=== PATIENT | female | born 2000 | race Two or more races ===

== ENCOUNTER 2024-06-23 08:12 | Emergency (ER) | payer MEDICAID, SELFPAY ==
--- NOTE | 2024-06-23 08:26 | XR_ITS ---
Examination: Complete OB ultrasound, less than 14 weeks, transabdominal Date and time of exam: June 23, 2024 0852 hours INDICATIONS: Onset vaginal bleeding and pelvic pain today, 12 week by history Technique: Obstetrical ultrasound images less than 14 weeks performed via transabdominal imaging Findings: Uterus 8.4 x 5.3 x 6.3 cm Intrauterine gestational sac 2.4 cm corresponds to 7 weeks 3 days gestational age No pole No cardiac activity Right ovary 3.4 x 2.4 x 3.0 cm arterial flow Left ovary 3.3 x 1.8 x 2.0 cm arterial flow IMPRESSION: Empty intrauterine gestational sac corresponding to 7 weeks 3 days gestational age No pole, no cardiac activity Recommend short-term follow-up transvaginal pelvic sonography to exclude embryonic demise
--- NOTE | 2024-06-23 08:27 | PD.EDVAGBL ---
ED OB Contraction Preg RMI/HPI General Chief complaint: Vaginal Bleeding Stated complaint: VAGINAL BLEEDING X 10 MIN; 12 WKS GRAV 1 Time Seen by Provider: 06/23/24 08:22 Source: patient Arrival date/time: 06/23/24 08:12 24-year-old female presents to the emergency room with a chief complaint of vaginal bleeding and bilateral pelvic pain x 10 minutes. Patient is currently 12 weeks she is a G1, P0. Mode of arrival: ambulatory Limitations: no limitations Related Data Previous Rx's ?Medication ?Instructions ?Recorded lidocaine 5 % topical ointment 1 applic topical QDAY PRN pain #30 02/24/23 grams cephalexin 500 mg capsule 500 mg PO BID 7 days #14 caps 06/23/24 Allergies Allergy/AdvReac Type Severity Reaction Status Date / Time Penicillins Allergy Intermediate FEVER, RASH Verified 06/23/24 08:14 Review of Systems Review of Systems Systems Reviewed: All systems reviewed, normal except as documented Constitutional Constitutional: Reports system reviewed and no additional complaints, except as documented, Denies fatigue, Denies fever(s), Denies headache(s) and Denies weakness Eyes Eyes: Reports system reviewed and no additional complaints, except as documented, Denies blurry vision and Denies change in vision ENT Ears, Nose, Mouth, and Throat: Reports system reviewed and no additional complaints, except as documented, Denies otalgia, Denies headache(s), Denies nasal congestion, Denies throat swelling and Denies vertigo Cardiovascular Cardiovascular: Reports system reviewed and no additional complaints, except as documented, Denies chest pain, Denies dyspnea and Denies dyspnea on exertion Respiratory Respiratory: Reports system reviewed and no additional complaints, except as documented, Denies chest congestion, Denies cough, Denies dyspnea, Denies dyspnea on exertion and Denies wheezing Gastrointestinal Gastrointestinal: Reports system reviewed and no additional complaints, except as documented, Denies abdominal pain, Denies cramping, Denies nausea and Denies vomiting Genitourinary Genitourinary: Reports system reviewed and no additional complaints, except as documented, Reports abnormal vaginal bleeding and Reports pelvic pain Musculoskeletal Musculoskeletal: Reports system reviewed and no additional complaints, except as documented and Denies back pain Integumentary/Breasts Skin/Breast: Reports system reviewed and no additional complaints, except as documented and Denies wounds Neurologic Neurologic: Reports system reviewed and no additional complaints, except as documented, Denies confusion, Denies headache(s), Denies lack of coordination, Denies vertigo and Denies weakness Psychiatric Psychiatric: Reports system reviewed and no additional complaints, except as documented, Denies anxiety, Denies confusion, Denies depression, Denies paranoia, Denies suicidal ideation and Denies tactile hallucinations Endocrine Endocrine: Reports system reviewed and no additional complaints, except as documented and Denies fatigue Hematologic/Lymphatic Hematologic/Lymphatic: Reports system reviewed and no additional complaints, except as documented and Denies lymphadenopathy Allergic/Immunologic Allergic/Immunologic: Reports system reviewed and no additional complaints, except as documented, Denies throat swelling, Denies urticaria and Denies wheezing Past Medical History Social History SMOKING STATUS: Never smoker ED Exam General Limitations: Present no limitations General appearance: Present alert and in no apparent distress Head Head exam: Present atraumatic Eye Eye exam: Present normal appearance, PERRL and EOMI ENT ENT exam: Present normal exam, normal oropharynx and mucous membranes moist Neck Neck exam: Present normal inspection, full ROM and trachea midline Chest Chest inspection: Present normal inspection and symmetric chest wall rise Respiratory Respiratory exam: Present normal lung sounds bilaterally Cardiovascular Cardiovascular exam: Present regular rate, normal rhythm and normal heart sounds Abdominal Exam Abdominal exam: Present soft, tenderness and normal bowel sounds Abdominal tenderness: Present RLQ, LLQ and mild Extremities Exam Extremities exam: Present normal inspection and full ROM Back Exam Back exam: Present normal inspection and full ROM Neurological Exam Neurological exam: Present alert, oriented X3 and CN II-XII intact Psychiatric Psychiatric exam: Present normal affect and normal mood Skin Skin exam: Present warm, dry, intact and normal color Course Quality Measures none Orders Category Date Time Status US OB <= 14 weeks fetus Stat Exams 06/23/24 08:26 Completed ABO/RH Type Stat Lab 06/23/24 08:50 Completed Beta HCG,Quantitative Stat Lab 06/23/24 08:50 Completed CBC Stat Lab 06/23/24 08:50 Completed CMP [Comprehensive Metabolic Panel] Stat Lab 06/23/24 08:50 Completed UA [Urinalysis] Stat Lab 06/23/24 08:40 Completed Vital Signs Vital signs: Vital Signs Temperature 98.9 F 06/23/24 08:36 Pulse Rate 84 06/23/24 08:36 Respiratory Rate 19 06/23/24 08:36 Blood Pressure 134/83 H 06/23/24 08:36 Pulse Oximetry (%) 98 06/23/24 08:36 Oxygen Delivery Method Room Air 06/23/24 08:36 O2 saturation within normal limits Vaginal Bleeding MDM Narrative MDM Narrative: 24-year-old female presents to the emergency room with a chief complaint of vaginal bleeding and bilateral pelvic pain x 10 minutes. Patient is currently 12 weeks she is a G1, P0. The patient is hemodynamically stable and nontoxic-appearing. Patient states she is having bleeding and it is less than a period hCG levels were 9464. Ultrasound was completed and shows a that is currently 7 weeks and 3 days. No heart tones no cardiac pole and an empty gestational sac was found. Radiologist recommends short-term follow-up. Patient was educated to follow-up with her LUMBER CARRIER OPERATOR in the next 48 to 72 hours for repeat workup and instructed to return to the emergency room if she is unable to get an appointment. Patient was educated to return to the emergency room for any evidence of worsening signs or symptoms. Patient data External records reviewed:: [facility] previous records Clinical information provided by:: patient Social determinants that could affect healthcare access:: none Patient has the following chronic illnesses:: No chronic illness How is presenting disease/condition affected by chronic disease/condition?: no chronic disease Evaluation data The following diagnostics were reviewed and interpreted by me:: lab results and radiology exam(s) Lab and/or radiology exams considered but not ordered:: Labs and radiology exams considered and ordered Interpretation Summary: N/A Medications / Prescriptions Medications or Prescriptions considered but not ordered:: Medication not given Medication administrations:: Medication not given Consultations Consultation(s) initiated? (list below): No Diagnosis Vaginal Bleeding Differential Diagnosis: threatened , dysfunctional uterine bleeding and vaginal bleeding Most likely diagnosis given after review of the tests above:: Vaginal bleeding Admission Indicated Admission indicated?: not indicated Admission Request Was there a request for admission?: No Disposition Plan Disposition Plan: Discharge Discharge Attestation Discharge Attestation: The patient and all family members were given an opportunity to ask questions and understood the discharge instructions. Discharge instructions specifically effects, indications for sooner follow up or return to the emergency department, and the expected course of current diagnosis. Patient condition: Stable Discharge Plan Plan Patient Disposition: HOME (Self Care) Disposition Comment: Stable Prescriptions/Referrals Prescriptions/Med Rec: New cephalexin 500 mg capsule 500 mg PO BID 7 Days Qty: 14 0RF No Action lidocaine 5 % ointment 1 applic topical QDAY PRN (Reason: pain) Qty: 30 0RF Referrals: Mick Reno MD [Primary Care Provider] - In 1 week Problem List Clinical Impression: Vaginal bleeding, Urinary tract infection Patient/Caregiver Discharge Instructions Education Materials: ED Dysfunctional Uterine Bleeding Additional Instructions: Please follow-up with your LUMBER CARRIER OPERATOR in the next 24 to 48 hours. For any evidence of worsening signs or symptoms please return to the emergency room immediately Print Language: Sierra Leonean Stand Alone Forms: Jenny Award Info., Work/School Release, Patient Portal Info Letter PA/STEAM TRAP MAN Supervising Physician PA/STEAM TRAP MAN Supervising Physician: Dr. Silva
[2024-06-23 08:36] VITALS: BP 134/83; PULSE 84; RESP 19; TEMP 37.2; O2SAT 98; BMI 41.0
[2024-06-23 09:08] LABS: Collection Type, Urine Clean Catch
[2024-06-23 09:11] LABS: Basophils % (Auto) 0 % (0-2.5); Eosinophils # (Auto) 0.1 Thou/mm3 (0.0-0.5); Eosinophils % (Auto) 1 % (0-10); Hematocrit 40.9 % (36.0-46.0); Hemoglobin 13.6 g/dL (12.0-16.0); Immature Granulocytes % (Auto) 1 % (0-0); Immature Granulocytes Auto 0.04 Thou/mm3 (0.00-0.00); Lymphocytes # (Auto) 2.3 Thou/mm3 (1.0-4.8); Lymphocytes % (Auto) 26 % (10-50); Mean Corpuscular HGB Conc 33.3 g/dl (31.0-37.0); Mean Corpuscular Hemoglobin 27.8 pg (25.0-35.0); Mean Corpuscular Volume 84 fL (80-100); Monocytes # (Auto) 0.4 Thou/mm3 (0.0-0.8); Monocytes % (Auto) 5 % (0-12); Neutrophils # (Auto) 5.8 Thou/mm3 (1.8-7.7); Neutrophils % (Auto) 67 % (37-80); Nucleated Red Blood Cell % 0 /100 WBC (0); Platelet Count 244 Thou/mm3 (140-440); RDW Standard Deviation 38.9 fL (36.4-46.3); Red Blood Count 4.89 Miln/mm3 (4.00-5.20); White Blood Count 8.7 Thou/mm3 (3.6-11.0)
[2024-06-23 09:41] LABS: Alanine Aminotransferase 26 U/L (10-49); Albumin, Serum 4.8 gm/dL (3.5-5.0); Albumin/Globulin Ratio 2.1 (1.2-2.2); Alkaline Phosphatase 75 U/L (46-116); Anion Gap 9 (7-16); Aspartate Amino Transferase 22 U/L (0-34); BUN/Creatinine Ratio 17 Ratio (12-20); Bilirubin,Total 0.6 mg/dL (0.3-1.2); Blood Urea Nitrogen 10 mg/dL (9-23); Calcium 9.4 mg/dL (8.3-10.6); Calcium (Corrected) 9.4 mg/dL (8.5-10.1); Carbon Dioxide 25.6 mMol/L (20.0-31.0); Chloride 102 mMol/L (98-107); Creatinine (Component) 0.6 mg/dL (0.6-1.3); Estimated Creatinine Clearance 173.9 mL/min (>60); Globulin 2.3 gm/dL (2.3-3.5); Glucose 219 mg/dL (74-106); Osmolality,Calculated 279 (275-295); Potassium 3.9 mMol/L (3.4-5.1); Sodium 137 mMol/L (136-145); Total Protein 7.1 gm/dL (5.7-8.2); eGFR > 60 See Note
[2024-06-23 09:45] LABS: Bilirubin,Urine Negative (Negative); Blood,Urine 3+ (Negative); Color,Urine Brown (Lt Yel-Yel); Glucose, Urine 4+ (Negative); Ketones,Urine Trace (Negative); Leukocyte Esterase,Urine Positive (Negative); Nitrite,Urine Negative (Negative); PH,Urine 5.5 (5.0-7.0); Protein,Urine 1+ (Neg - Trace); RBC,Urine 2612 /hpf (0-3); Specific Gravity,Urine 1.038 (1.001-1.035); Squamous Epithelial Cell,Urine 32 /hpf (0-5); Urobilinogen,Urine Negative mg/dL (0.0-1.0); WBC,Urine 17 /hpf (0-5)
[2024-06-23 09:59] LABS: Clarity,Urine Turbid (Clear/Hazy)
[2024-06-23 10:06] LABS: Beta HCG,Quantitative 9464 mIU/mL (<5.0)
== END 2024-06-23 10:13 | disposition home or self-care (01) ==
PROVIDERS: Nurse Practitioner Family; Emergency Provider Emergency Medicine; PCP Family Medicine
DX: O20.9 Hemorrhage in early pregnancy, unspecified (principal); O23.41 Unspecified infection of urinary tract in pregnancy, first trimester; N39.0 Urinary tract infection, site not specified; Z3A.01 Less than 8 weeks gestation of pregnancy
CPT/HCPCS: 36415; 76801; 80053; 81001; 84702; 85025; 86900; 86901; 99284

== ENCOUNTER 2024-07-01 10:51 | Emergency (ER) | payer MEDICAID, SELFPAY ==
[2024-07-01 10:53] VITALS: BMI 38.7
[2024-07-01 11:55] VITALS: BP 100/68; PULSE 82; RESP 19; TEMP 37.2; O2SAT 95
--- NOTE | 2024-07-01 12:00 | XR_ITS ---
Examination: Complete OB ultrasound, less than 14 weeks, transabdominal Date and time of exam: July 01, 2024 1242 hours INDICATIONS: Status post miscarriage one day ago with vaginal bleeding Technique: Obstetrical ultrasound images less than 14 weeks performed via transabdominal imaging Findings: Uterus 9.7 x 4.7 x 6.1 cm Endometrial stripe 0.6 cm No intrauterine gestation No retained products Right ovary 3.5 cm arterial flow Left ovary 3.5 cm arterial flow IMPRESSION: Negative for intrauterine gestation Negative for retained product of conception
--- NOTE | 2024-07-01 12:00 | PD.EDRME ---
Rapid Medical Screening Exam E Arrival date/time: 07/01/24 10:51 24-year-old female who 8 weeks of gestation presents to the emergency department with complaints of vaginal bleeding possible spontaneous . Was sent over by Dr. Springer for evaluation. I have greeted and performed a focused initial assessment of this patient. Initial appropriate labs ordered at this time. A comprehensive ED assessment and evaluation of the patient and analysis of all test and completion of medical decision making process will be conducted by additional ED provider. Chief Complaint: Vaginal Bleeding Time Seen by Provider: 07/01/24 11:35 Vital signs: Vital Signs Temperature 98.9 F 07/01/24 11:55 Pulse Rate 82 07/01/24 11:55 Respiratory Rate 19 07/01/24 11:55 Blood Pressure 100/68 07/01/24 11:55 Pulse Oximetry (%) 95 07/01/24 11:55 Oxygen Delivery Method Room Air 07/01/24 11:55
[2024-07-01 12:37] LABS: Basophils % (Auto) 0 % (0-2.5); Eosinophils # (Auto) 0.1 Thou/mm3 (0.0-0.5); Eosinophils % (Auto) 1 % (0-10); Hematocrit 39.1 % (36.0-46.0); Hemoglobin 13.3 g/dL (12.0-16.0); Immature Granulocytes % (Auto) 0 % (0-0); Immature Granulocytes Auto 0.02 Thou/mm3 (0.00-0.00); Lymphocytes # (Auto) 2.6 Thou/mm3 (1.0-4.8); Lymphocytes % (Auto) 25 % (10-50); Mean Corpuscular Hemoglobin 28.2 pg (25.0-35.0); Mean Corpuscular Volume 83 fL (80-100); Monocytes # (Auto) 0.5 Thou/mm3 (0.0-0.8); Monocytes % (Auto) 5 % (0-12); Neutrophils # (Auto) 7.4 Thou/mm3 (1.8-7.7); Neutrophils % (Auto) 70 % (37-80); Nucleated Red Blood Cell % 0 /100 WBC (0); Platelet Count 239 Thou/mm3 (140-440); RDW Standard Deviation 38.7 fL (36.4-46.3); Red Blood Count 4.72 Miln/mm3 (4.00-5.20); White Blood Count 10.6 Thou/mm3 (3.6-11.0)
[2024-07-01 13:02] LABS: Alanine Aminotransferase 29 U/L (10-49); Albumin, Serum 4.5 gm/dL (3.5-5.0); Alkaline Phosphatase 81 U/L (46-116); Anion Gap 7 (7-16); Aspartate Amino Transferase < 8 U/L (0-34); BUN/Creatinine Ratio 15 Ratio (12-20); Bilirubin,Total 0.4 mg/dL (0.3-1.2); Blood Urea Nitrogen 9 mg/dL (9-23); Calcium 9.3 mg/dL (8.3-10.6); Calcium (Corrected) 9.3 mg/dL (8.5-10.1); Chloride 102 mMol/L (98-107); Creatinine (Component) 0.6 mg/dL (0.6-1.3); Estimated Creatinine Clearance 180.6 mL/min (>60); Globulin 2.3 gm/dL (2.3-3.5); Glucose 246 mg/dL (74-106); Osmolality,Calculated 280 (275-295); Potassium 4.2 mMol/L (3.4-5.1); Sodium 137 mMol/L (136-145); Total Protein 6.8 gm/dL (5.7-8.2); eGFR > 60 See Note
[2024-07-01] MEDS: ACETAMINOPHEN 500 MG TABLET 1000 MG PO (13:10)
[2024-07-01 13:17] LABS: Beta HCG,Quantitative 981 mIU/mL (<5.0)
[2024-07-01 13:36] LABS: Collection Type, Urine Clean Catch
[2024-07-01 13:49] LABS: Bilirubin,Urine Negative (Negative); Blood,Urine 3+ (Negative); Clarity,Urine Turbid (Clear/Hazy); Glucose, Urine 4+ (Negative); Ketones,Urine Negative (Negative); Leukocyte Esterase,Urine Positive (Negative); Nitrite,Urine Negative (Negative); Protein,Urine 1+ (Neg - Trace); RBC,Urine 3546 /hpf (0-3); Specific Gravity,Urine 1.035 (1.001-1.035); Squamous Epithelial Cell,Urine 6 /hpf (0-5); Urobilinogen,Urine Negative mg/dL (0.0-1.0); WBC,Urine 5 /hpf (0-5)
[2024-07-01 13:54] LABS: Color,Urine Amber (Lt Yel-Yel)
[2024-07-01 14:35] VITALS: BP 109/80; PULSE 80; RESP 18; TEMP 36.8; O2SAT 98
--- NOTE | 2024-07-01 16:18 | EDNOTE_ITS ---
<Statement entered by Alisha Reeves MD - 07/05/24 07:25> As co-signing physician, I was present and available for consult prn. I concur with the plan and care as documented by the midlevel provider. ED OB Contraction Preg RMI/HPI General Chief complaint: Vaginal Bleeding Stated complaint: VAGINAL BLEEDING, 8 WEEKS Time Seen by Provider: 07/01/24 11:35 Arrival date/time: 07/01/24 10:51 RME / HPI RME / HPI Narrative: 24-year-old female patient 1 para 0, about 8 weeks , came in for evaluation regarding vaginal bleeding. Patient has been having vaginal bleeding for the last 1 week, getting worse yesterday, yesterday patient was about passing blood clots. Also complaining of pelvic discomfort. Patient denies any fever denies any dizziness denies other complaints. Patient was seen by Dr Springer yesterday, and was advised to come to the emergency room for possible D&C. Currently patient is having bleeding but according to her is very minimal only when sleepy. Related Data Previous Rx's ?Medication ?Instructions ?Recorded lidocaine 5 % topical ointment 1 applic topical QDAY P RN pain #30 02/24/23 grams Allergies Allergy/AdvReac Type Severity Reaction Status Date / Time Penicillins Allergy Intermediate FEVER, RASH Verified 07/01/24 10:52 Review of Systems Review of Systems Narrative Review of Systems: Review of system reviewed and within normal limits except mentioned in HPI ED Exam Narrative Physical exam: VITAL SIGNS: Reviewed. GENERAL APPEARANCE: Alert and interactive, follows commands, no acute distress, HEAD AND FACE: Non-traumatic. ENT: PERRL, pink conjunctivitis, eyelid no trauma, Mucous membrane moist. NECK: Supple, nontender, no nuchal rigidity. CHEST: No tenderness, no crepitus, no paradoxical movement, no retractions. LUNGS: Clear, well ventilated, symmetric, no rales, no wheezing, no ronchi, no stridor, good breath sounds bilaterally. HEART: Regular rate, regular rhythm, no murmur, no gallops. ABDOMEN: Soft, positive bowel sounds, nondistended, no guarding, nontender, no rebound, no masses, RECTAL: Deferred. GENITAL: Deferred. NEUROLOGICAL: Gross motor function intact sensory function intact, Appropriate for age. MUSCULOSKELETAL: low back nontender, full range of motion. EXTREMITIES: Nontender, full range of motion. SKIN: Color pink, dry, no rash, no lacerations, no abrasions, no contusions. LYMPHATICS: Deferred. Course Quality Measures none Orders Category Date Time Status US OB <= 14 weeks fetus Stat Exams 07/01/24 12:00 Completed ABO/RH Type Stat Lab 07/01/24 12:22 Completed Beta HCG,Quantitative Stat Lab 07/01/24 12:22 Completed CBC Stat Lab 07/01/24 12:22 Completed Comprehensive Metabolic Panel Stat Lab 07/01/24 12:22 Completed Urinalysis Stat Lab 07/01/24 13:23 Completed Acetaminophen Tab [Tylenol ES Tab] Med 07/01/24 12:00 Discontinued 1,000 mg PO X1 ONE Vital Signs Vital signs: Vital Signs Temperature 98.9 F 07/01/24 11:55 Pulse Rate 82 07/01/24 11:55 Respiratory Rate 19 07/01/24 11:55 Blood Pressure 100/68 07/01/24 11:55 Pulse Oximetry (%) 95 07/01/24 11:55 Oxygen Delivery Method Room Air 07/01/24 11:55 Vaginal Bleeding MDM Narrative MDM Narrative: 24-year-old female patient 1 para 0, about 8 weeks , came in for evaluation regarding vaginal bleeding. Patient has been having vaginal bleeding for the last 1 week, getting worse yesterday, yesterday patient was about passing blood clots. Also complaining of pelvic discomfort. Patient denies any fever denies any dizziness denies other complaints. Patient was seen by Dr Springer yesterday, and was advised to come to the emergency room for possible D&C. Currently patient is having bleeding but according to her is very minimal only when sleepy. Laboratory showed significant drop of hCG from 9000 a week ago to 900+ today. Ultrasound of showed no IUP and no retained products of conception noted. I discussed this case with Dr Springer JINGLE WRITER, and told me that he will cancel the scheduled D&C and asked the patient to follow-up in his clinic this coming Thursday. Plan of care discussed with the patient and family. Patient data External records reviewed:: None Clinical information provided by:: patient Social determinants that could affect healthcare access:: none Patient has the following chronic illnesses:: None How is presenting disease/condition affected by chronic disease/condition?: no chronic disease Evaluation data The following diagnostics were reviewed and interpreted by me:: lab results and radiology exam(s) Lab and/or radiology exams considered but not ordered:: None Interpretation Summary: See results in MDM none Medications / Prescriptions Medications or Prescriptions considered but not ordered:: None Medication administrations:: Medication Administration History Discontinued Medications Acetaminophen (Acetaminophen 500 Mg Tablet) 1,000 mg PO X1 ONE Stop: 07/01/24 12:01 Last Admin: 07/01/24 13:10 Dose: 1,000 mg Documented By: SAUL Tylenol Consultations Consultation(s) initiated? (list below): No Diagnosis Vaginal Bleeding Differential Diagnosis: missed and threatened Most likely diagnosis given after review of the tests above:: Completed Admission Indicated Admission indicated?: not indicated Explain why admission is indicated or not indicated:: Stable Admission Request Was there a request for admission?: No Disposition Plan Disposition Plan: Discharge Discharge Attestation Discharge Attestation: The patient and all family members were given an opportunity to ask questions and understood the discharge instructions. Discharge instructions specifically effects, indications for sooner follow up or return to the emergency department, and the expected course of current diagnosis. Patient condition: Stable Discharge Plan Plan Patient Disposition: HOME (Self Care) Disposition Comment: Stable Prescriptions/Referrals Prescriptions/Med Rec: No Action lidocaine 5 % ointment 1 applic topical QDAY PRN (Reason: pain) Qty: 30 0RF Referrals: Kuldip Lanier PA-C [Primary Care Provider] - In 1 week Problem List Clinical Impression: Complete Patient/Caregiver Discharge Instructions Discharge Activity: activity as tolerated Education Materials: Understanding Miscarriage ... Additional Instructions: Thank you for the opportunity for serving you today. You are stable for dis charged . You are advised to: Follow-up with Dr Springer, Thursday in the clinic Return to ED for worsening of symptoms Increase oral fluids Dr Springer will cancel your scheduled D&C Print Language: [place] Stand Alone Forms: Jenny Award Info., Patient Portal Info Letter GIL/JOSÉ MIGUEL Supervising Physician MARC Supervising Physician: MD Lala
== END 2024-07-01 16:50 | disposition home or self-care (01) ==
PROVIDERS: Nurse Practitioner Primary Care; Emergency Provider Emergency Medicine; PCP Physician Assistant
DX: O03.9 Complete or unspecified spontaneous abortion without complication (principal)
CPT/HCPCS: 36415; 76801; 80053; 81001; 84702; 85025; 86900; 86901; 99284; A9270

== ENCOUNTER 2024-11-21 11:09 | Emergency (ER) | payer MEDICAID, SELFPAY ==
[2024-11-21 11:30] VITALS: BP 126/82; PULSE 88; RESP 17; TEMP 37.3; O2SAT 97; BMI 45.3
--- NOTE | 2024-11-21 12:11 | XR_ITS ---
Examination: Complete OB ultrasound, less than 14 weeks, transabdominal Date and time of exam: October 25, 2024 at 12:23 PM INDICATIONS: Lower pelvic pain back pain beginning one week ago Technique: Obstetrical ultrasound images less than 14 weeks performed via transabdominal imaging Findings: Uterus 8.6 cm, gestational sac 0.62 cm corresponds to 5 weeks 2 days gestational age No pole, no cardiac activity Right ovary 3.5 cm arterial flow Left ovary 3.3 cm arterial flow IMPRESSION: Empty intrauterine gestational sac corresponding to 5 weeks 2 days gestational age, no pole, no cardiac activity Recommend short-term follow-up to confirm viability
[2024-11-21 12:55] LABS: Basophils % (Auto) 0 % (0-2.5); Eosinophils # (Auto) 0.1 Thou/mm3 (0.0-0.5); Eosinophils % (Auto) 1 % (0-10); Hematocrit 36.6 % (36.0-46.0); Hemoglobin 12.7 g/dL (12.0-16.0); Immature Granulocytes % (Auto) 0 % (0-0); Immature Granulocytes Auto 0.02 Thou/mm3 (0.00-0.00); Lymphocytes # (Auto) 3.1 Thou/mm3 (1.0-4.8); Lymphocytes % (Auto) 29 % (10-50); Mean Corpuscular HGB Conc 34.7 g/dl (31.0-37.0); Mean Corpuscular Hemoglobin 28.3 pg (25.0-35.0); Mean Corpuscular Volume 82 fL (80-100); Monocytes # (Auto) 0.7 Thou/mm3 (0.0-0.8); Monocytes % (Auto) 6 % (0-12); Neutrophils # (Auto) 6.7 Thou/mm3 (1.8-7.7); Neutrophils % (Auto) 63 % (37-80); Nucleated Red Blood Cell % 0 /100 WBC (0); Platelet Count 180 Thou/mm3 (140-440); RDW Standard Deviation 39.8 fL (36.4-46.3); Red Blood Count 4.48 Miln/mm3 (4.00-5.20); White Blood Count 10.6 Thou/mm3 (3.6-11.0)
[2024-11-21 13:16] LABS: Alanine Aminotransferase 32 U/L (10-49); Albumin, Serum 4.2 gm/dL (3.5-5.0); Albumin/Globulin Ratio 1.9 (1.2-2.2); Alkaline Phosphatase 70 U/L (46-116); Anion Gap 7 (7-16); Aspartate Amino Transferase 20 U/L (0-34); BUN/Creatinine Ratio 9 Ratio (12-20); Bilirubin,Total 0.3 mg/dL (0.3-1.2); Blood Urea Nitrogen 6 mg/dL (9-23); Calcium 8.6 mg/dL (8.3-10.6); Calcium (Corrected) 8.6 mg/dL (8.5-10.1); Carbon Dioxide 25.3 mMol/L (20.0-31.0); Chloride 106 mMol/L (98-107); Creatinine (Component) 0.7 mg/dL (0.6-1.3); Estimated Creatinine Clearance 141.3 mL/min (>60); Globulin 2.2 gm/dL (2.3-3.5); Glucose 284 mg/dL (74-106); Lipase 33 U/L (12-53); Osmolality,Calculated 283 (275-295); Potassium 4.1 mMol/L (3.4-5.1); Sodium 138 mMol/L (136-145); Total Protein 6.4 gm/dL (5.7-8.2); eGFR > 60 See Note
[2024-11-21 13:19] LABS: Collection Type, Urine Voided; RBC,Urine 0 /hpf (0-3)
[2024-11-21 13:26] LABS: Beta HCG,Quantitative 3663 mIU/mL (<5.0)
[2024-11-21 13:44] LABS: Bacteria,Urine Rare; Bilirubin,Urine Negative (Negative); Blood,Urine Negative (Negative); Budding Yeast,Urine Present; Clarity,Urine Clear (Clear/Hazy); Color,Urine Lt-Yellow (Lt Yel-Yel); Culture Indicated,Urine Not Indicated; Glucose, Urine 4+ (Negative); Ketones,Urine Negative (Negative); Leukocyte Esterase,Urine Positive (Negative); Nitrite,Urine Negative (Negative); PH,Urine 5.5 (5.0-7.0); Protein,Urine Negative (Neg - Trace); Specific Gravity,Urine 1.044 (1.001-1.035); Squamous Epithelial Cell,Urine 8 /hpf (0-5); Urobilinogen,Urine Negative mg/dL (0.0-1.0); WBC,Urine 2 /hpf (0-5)
--- NOTE | 2024-11-21 14:38 | EDNOTE_ITS ---
ED Abdominal Pain RME/HPI General Chief Complaint: Abdominal Pain Stated complaint: + preg test today, abd/back pain Time seen by provider: 11/21/24 11:34 Arrival date/time: 11/21/24 11:09 RME / HPI RME / HPI narrative: patient presents with complaint of abdominal and back pain, she had a positive test at home today. she denies currently denies vaginal bleeding. She states that she had a spontaneous in jun 2024, she also complains of pelvic pain X 1 week. She is , unsure of her FDLMP due to her spontaneous 4 months ago Related Data Previous Rx's ?Medication ?Instructions ?Recorded lidocaine 5 % topical ointment 1 applic topical QDAY P RN pain #30 02/24/23 grams Allergies Allergy/AdvReac Type Severity Reaction Status Date / Time Penicillins Allergy Intermediate FEVER, RASH Verified 11/21/24 11:14 Review of Systems Review of Systems Systems Reviewed: All systems reviewed, normal except as documented Constitutional Constitutional: Reports system reviewed and no additional complaints, except as documented ENT Ears, Nose, Mouth, and Throat: Reports system reviewed and no additional complaints, except as documented Cardiovascular Cardiovascular: Reports system reviewed and no additional complaints, except as documented Respiratory Respiratory: Reports system reviewed and no additional complaints, except as documented Gastrointestinal Gastrointestinal: Reports system reviewed and no additional complaints, except as documented Genitourinary Genitourinary: Reports system reviewed and no additional complaints, except as documented Musculoskeletal Musculoskeletal: Reports system reviewed and no additional complaints, except as documented Psychiatric Psychiatric: Reports system reviewed and no additional complaints, except as documented ED Exam General General appearance: Present alert and in no apparent distress Head Head exam: Present atraumatic and normocephalic ENT ENT exam: Present normal exam and normal oropharynx Chest Chest inspection: Present normal inspection and symmetric chest wall rise Respiratory Respiratory exam: Present normal lung sounds bilaterally Cardiovascular Cardiovascular exam: Present regular rate and normal rhythm Abdominal Exam Abdominal exam: Present soft Extremities Exam Extremities exam: Present normal inspection Psychiatric Psychiatric exam: Present normal affect and normal mood Course Quality Measures none Orders Category Date Time Status US OB <= 14 weeks fetus Stat Exams 11/21/24 12:11 Completed Beta HCG,Quantitative Stat Lab 11/21/24 12:45 Completed CBC Stat Lab 11/21/24 12:45 Completed CMP [Comprehensive Metabolic Panel] Stat Lab 11/21/24 12:45 Completed Lipase Stat Lab 11/21/24 12:45 Completed Urinalysis, C/S if Indicated Stat Lab 11/21/24 13:13 Completed Vital Signs Vital signs: Vital Signs Temperature 99.1 F 11/21/24 11:30 Pulse Rate 88 11/21/24 11:30 Respiratory Rate 17 11/21/24 11:30 Blood Pressure 126/82 11/21/24 11:30 Pulse Oximetry (%) 97 11/21/24 11:30 Oxygen Delivery Method Room Air 11/21/24 11:30 Abdominal Pain MDM MDM Narrative MDM Narrative:: Patient presents to ED with abdomen/ back and pelvic pain X 1 week, she also had a recent + home test, however she had a spontaneous 4 months ago, US indicates no +ve tones, patient encouraged to recheck hcg quant and US in 3-7 days Patient data External records reviewed:: None Clinical information provided by:: patient Social determinants that could affect healthcare access:: none Patient has the following chronic illnesses:: na How is presenting disease/condition affected by chronic disease/condition?: no chronic disease Evaluation data The following diagnostics were reviewed and interpreted by me:: lab results and radiology exam(s) Lab and/or radiology exams considered but not ordered:: both considered and ordered Interpretation Summary: negative and low hcg quant Medications / Prescriptions Medications or Prescriptions considered but not ordered:: na Medication administrations:: na Consultations Consultation(s) initiated? (list below): No Diagnosis Differential diagnosis abdominal pain: abdominal pain, acute appendicitis, constipation and endometriosis Most likely diagnosis given after review of the tests above:: threatened Admission Indicated Admission indicated?: not indicated Explain why admission is indicated or not indicated:: no life threatening emergency noted Admission Request Was there a request for admission?: No Disposition Plan Disposition Plan: Discharge Discharge Attestation Discharge Attestation: The patient and all family members were given an opportunity to ask questions and understood the discharge instructions. Discharge instructions specifically effects, indications for sooner follow up or return to the emergency department, and the expected course of current diagnosis. Patient condition: Stable Discharge Plan Plan Patient Disposition: HOME (Self Care) Prescriptions/Referrals Prescriptions/Med Rec: No Action lidocaine 5 % ointment 1 applic topical QDAY PRN (Reason: pain) Qty: 30 0RF Referrals: Soren,Mackenzie, SAMPLE PREPARATION SUPERVISOR-C [Primary Care Provider] - In 1 week Problem List Clinical Impression: Threatened in early Patient/Caregiver Discharge Instructions Education Materials: ED Possible Miscarriage ... Additional Instructions: Recheck US and HCG QUANT IN 5-7 days Print Language: Czech Stand Alone Forms: Jenny Award Info., Patient Portal Info Letter
== END 2024-11-21 15:01 | disposition home or self-care (01) ==
PROVIDERS: Physician Assistant; Emergency Provider Emergency Medicine; PCP Nurse Practitioner Family
DX: O20.0 Threatened abortion (principal); Z3A.01 Less than 8 weeks gestation of pregnancy
CPT/HCPCS: 36415; 76801; 80053; 81001; 83690; 84702; 85025; 99284

== ENCOUNTER 2024-12-30 11:53 | Emergency (ER) | payer MEDICAID, SELFPAY ==
[2024-12-30 12:03] VITALS: BP 110/72; PULSE 83; RESP 18; TEMP 37.3; O2SAT 96; BMI 38.7
--- NOTE | 2024-12-30 12:13 | XR_ITS ---
Examination: OB Transvaginal ultrasound of the pelvis, complete Technique: Transvaginal sonographic images pelvis performed using lee scale imaging Exam date and time: January 09, 2025 1226 hours INDICATIONS: No heart tones on examination today. FINDINGS: Uterus 10.3 cm, CRL 0.4 cm corresponds to 6 week 0 day gestational age No heart tones Free fluid in the cervix Right ovary 3.1 cm arterial flow Left ovary obscured by bowel gas IMPRESSION: No heart tones consistent with demise Recommend short-term follow-up transvaginal pelvic sonography.
--- NOTE | 2024-12-30 12:14 | EDNOTE_ITS ---
<Statement entered by Alisha Reeves MD - 01/07/25 06:26> As co-signing physician, I was present and available for consult prn. I concur with the plan and care as documented by the midlevel provider. ED OB Contraction Preg RMI/HPI General Chief complaint: OB/Uterine Contractions Stated complaint: 11 weeks OB, , no heart beat Time Seen by Provider: 12/30/24 11:58 Arrival date/time: 12/30/24 11:53 RME / HPI RME / HPI Narrative: 24-year-old female patient 2 para 0 1, came in for evaluation regarding concern about viability of the fetus. Patient just came to her [employer]IESEL ENGINEER and told me that they did an ultrasound and was noted that there was no heart tone. Patient is denying any vaginal bleeding pelvic pain dizziness or fever. Denies any complaints. Patient is not happy because they did an ultrasound in the facility so fast that he had no time to check the heartbeat with the baby. Came here requesting for repeat ultrasound. Related Data Previous Rx's ?Medication ?Instructions ?Recorded lidocaine 5 % topical ointment 1 applic topical QDAY P RN pain #30 02/24/23 grams Allergies Allergy/AdvReac Type Severity Reaction Status Date / Time Penicillins Allergy Intermediate FEVER, RASH Verified 12/30/24 11:59 Review of Systems Review of Systems Narrative Review of Systems: Review of system reviewed and within normal limits except mentioned in HPI ED Exam Narrative Physical exam: VITAL SIGNS: Reviewed. GENERAL APPEARANCE: Alert and interactive, follows commands, no acute distress, HEAD AND FACE: Non-traumatic. ENT: PERRL, pink conjunctivitis, eyelid no trauma, Mucous membrane moist. NECK: Supple, nontender, no nuchal rigidity. CHEST: No tenderness, no crepitus, no paradoxical movement, no retractions. LUNGS: Clear, well ventilated, symmetric, no rales, no wheezing, no ronchi, no stridor, good breath sounds bilaterally. HEART: Regular rate, regular rhythm, no murmur, no gallops. ABDOMEN: Soft, positive bowel sounds, nondistended, no guarding, nontender, no rebound, no masses, RECTAL: Deferred. GENITAL: Deferred. NEUROLOGICAL: Gross motor function intact sensory function intact, Appropriate for age. MUSCULOSKELETAL: low back nontender, full range of motion. EXTREMITIES: Nontender, full range of motion. SKIN: Color pink, dry, no rash, no lacerations, no abrasions, no contusions. LYMPHATICS: Deferred. Course Quality Measures none Orders Category Date Time Status US OB transvaginal Stat Exams 12/30/24 12:13 Completed Basic Metabolic Panel Stat Lab 12/30/24 13:09 Completed Beta HCG,Quantitative Stat Lab 12/30/24 13:09 Completed CBC Stat Lab 12/30/24 13:09 Completed Urinalysis Stat Lab 12/30/24 12:57 Completed Vital Signs Vital signs: Vital Signs Temperature 99.2 F 12/30/24 12:03 Pulse Rate 83 12/30/24 12:03 Respiratory Rate 18 12/30/24 12:03 Blood Pressure 110/72 12/30/24 12:03 Pulse Oximetry (%) 96 12/30/24 12:03 Oxygen Delivery Method Room Air 12/30/24 12:03 OB/Uterine Contractions MDM Narrative MDM Narrative:: 24-year-old female patient 2 para 0 1, came in for evaluation regarding concern about viability of the fetus. Patient just came to her [employer] and told me that they did an ultrasound and was noted that there was no heart tone. Patient is denying any vaginal bleeding pelvic pain dizziness or fever. Denies any complaints. Patient is not happy because they did an ultrasound in the facility so fast that he had no time to check the heartbeat with the baby. Came here requesting for repeat ultrasound. Patient's workup today all came back with slight leukocytosis 12.3, urinalysis no UTI ultrasound of the pelvis, transvaginal showed No heart tones consistent with demise Recommend short-term follow-up transvaginal pelvic sonography. Results discussed with the patient, I asked the patient if he wants me to talk to DIES[employer]INEER for possible termination of however patient family wants to go home he wanted and will see the DIESEL ENGINEER herself in the clinic. Patient data External records reviewed:: None Clinical information provided by:: patient Social determinants that could affect healthcare access:: none Patient has the following chronic illnesses:: None How is presenting disease/condition affected by chronic disease/condition?: no chronic disease Evaluation data The following diagnostics were reviewed and interpreted by me:: lab results and radiology exam(s) Lab and/or radiology exams considered but not ordered:: None Interpretation Summary: See results MDM Medications / Prescriptions Medications or Prescriptions considered but not ordered:: None Medication administrations:: None Consultations Consultation(s) initiated? (list below): No Diagnosis OB Contractions Differential Diagnosis: other ( demise, intrauterine gestation, incomplete ) Most likely diagnosis given after review of the tests above:: , demise Admission Indicated Admission indicated?: not indicated Explain why admission is indicated or not indicated:: Stable for discharge home Admission Request Was there a request for admission?: No Disposition Plan Disposition Plan: Discharge Discharge Attestation Discharge Attestation: The patient and all family members were given an opportunity to ask questions and understood the discharge instructions. Discharge instructions specifically effects, indications for sooner follow up or return to the emergency department, and the expected course of current diagnosis. Patient condition: Stable Discharge Plan Plan Patient Disposition: HOME (Self Care) Discharge Disposition comment: stable Prescriptions/Referrals Prescriptions/Med Rec: No Action lidocaine 5 % ointment 1 applic topical QDAY PRN (Reason: pain) Qty: 30 0RF Referrals: Liza Doty MD [Primary Care Provider] - In 1 week Problem List Clinical Impression: Patient/Caregiver Discharge Instructions Discharge Activity: activity as tolerated Education Materials: First Trimester Additional Instructions: Thank you for the opportunity for serving you today. You are stable for discharged . You are advised to: Follow-up with your PCP in 1 to 2 days Return to ED for worsening of symptoms Increase oral fluids Ultrasound of showed intrauterine gestational however there is no heart tone seen at this time, gestational age is approximately 6 weeks Print Language: [place] Stand Alone Forms: Jenny Award Info., Patient Portal Info Letter GIL/JOSÉ MIGUEL Supervising Physician GIL/JOSÉ MIGUEL Supervising Physician: MD Lala
[2024-12-30 13:03] LABS: Collection Type, Urine Clean Catch
[2024-12-30 13:21] LABS: Bacteria,Urine Rare; Bilirubin,Urine Negative (Negative); Blood,Urine Negative (Negative); Color,Urine Yellow (Lt Yel-Yel); Glucose, Urine 4+ (Negative); Ketones,Urine Negative (Negative); Leukocyte Esterase,Urine Positive (Negative); Nitrite,Urine Negative (Negative); PH,Urine 6.5 (5.0-7.0); Protein,Urine Negative (Neg - Trace); RBC,Urine 2 /hpf (0-3); Specific Gravity,Urine 1.022 (1.001-1.035); Squamous Epithelial Cell,Urine 16 /hpf (0-5); Urobilinogen,Urine Negative mg/dL (0.0-1.0); WBC,Urine 4 /hpf (0-5)
[2024-12-30 13:22] LABS: Basophils # (Auto) 0.0 Thou/mm3 (0.0-0.2); Basophils % (Auto) 0 % (0-2.5); Eosinophils # (Auto) 0.1 Thou/mm3 (0.0-0.5); Eosinophils % (Auto) 1 % (0-10); Hematocrit 40.3 % (36.0-46.0); Hemoglobin 13.5 g/dL (12.0-16.0); Immature Granulocytes Auto 0.03 Thou/mm3 (0.00-0.00); Lymphocytes # (Auto) 3.1 Thou/mm3 (1.0-4.8); Lymphocytes % (Auto) 25 % (10-50); Mean Corpuscular HGB Conc 33.5 g/dl (31.0-37.0); Mean Corpuscular Hemoglobin 27.8 pg (25.0-35.0); Mean Corpuscular Volume 83 fL (80-100); Monocytes # (Auto) 0.7 Thou/mm3 (0.0-0.8); Monocytes % (Auto) 6 % (0-12); Neutrophils # (Auto) 8.4 Thou/mm3 (1.8-7.7); Neutrophils % (Auto) 68 % (37-80); Nucleated Red Blood Cell # 0.00 Thou/mm3 (0.00-0.00); Nucleated Red Blood Cell % 0 /100 WBC (0); Platelet Count 229 Thou/mm3 (140-440); RDW Standard Deviation 39.7 fL (36.4-46.3); Red Blood Count 4.85 Miln/mm3 (4.00-5.20); White Blood Count 12.3 Thou/mm3 (3.6-11.0)
[2024-12-30 13:34] LABS: Clarity,Urine Hazy (Clear/Hazy)
[2024-12-30 13:40] LABS: Anion Gap 11 (7-16); BUN/Creatinine Ratio 12 Ratio (12-20); Blood Urea Nitrogen 6 mg/dL (9-23); Calcium 9.5 mg/dL (8.3-10.6); Carbon Dioxide 25.0 mMol/L (20.0-31.0); Chloride 103 mMol/L (98-107); Creatinine (Component) 0.5 mg/dL (0.6-1.3); Estimated Creatinine Clearance 216.7 mL/min (>60); Glucose 117 mg/dL (74-106); Osmolality,Calculated 276 (275-295); Potassium 3.8 mMol/L (3.4-5.1); Sodium 139 mMol/L (136-145); eGFR > 60 See Note
[2024-12-30 14:02] LABS: Beta HCG,Quantitative 4388 mIU/mL (<5.0)
== END 2024-12-30 15:50 | disposition home or self-care (01) ==
PROVIDERS: Nurse Practitioner Family; Emergency Provider Emergency Medicine; PCP Obstetrics & Gynecology
DX: O02.1 Missed abortion (principal)
CPT/HCPCS: 36415; 76817; 80048; 81001; 84702; 85025; 99283

== ENCOUNTER 2025-01-08 23:09 | Emergency (ER) | payer MEDICAID, SELFPAY ==
[2025-01-08 23:10] VITALS: BMI 39.9
--- NOTE | 2025-01-08 23:23 | PD.EDVAGBL ---
ED OB Contraction Preg RMI/HPI General Chief complaint: Vaginal Bleeding Stated complaint: 8 WKS PREG VAG BLEEDING Arrival date/time: 01/08/25 23:09 RME / HPI RME / HPI Narrative: See MDM. Related Data Previous Rx's ?Medication ?Instructions ?Recorded lidocaine 5 % topical ointment 1 applic topical QDAY PRN pain #30 02/24/23 grams Allergies Allergy/AdvReac Type Severity Reaction Status Date / Time Penicillins Allergy Intermediate FEVER, RASH Verified 01/08/25 23:15 Review of Systems Review of Systems Systems Reviewed: All systems reviewed, normal except as documented Past Medical History Social History SMOKING STATUS: Never smoker ED Exam Narrative Physical exam: As noted in MDM. Course Quality Measures none Orders Category Date Time Status US OB <= 14 weeks fetus Stat Exams 01/08/25 23:34 Ordered Beta HCG,Quantitative Stat Lab 01/08/25 23:34 Ordered Bilirubin,Direct Stat Lab 01/08/25 23:34 Ordered CBC Stat Lab 01/08/25 23:35 Ordered CMP [Comprehensive Metabolic Panel] Stat Lab 01/08/25 23:34 Ordered Magnesium Stat Lab 01/08/25 23:34 Ordered Rh Testing Only Stat Lab 01/08/25 23:34 Ordered UA, C/S IF [Urinalysis, C/S if Indicated] Stat Lab 01/08/25 23:35 Ordered Vaginal Bleeding MDM Narrative [facility] Narrative: This section includes all my notes and documentations, including HPI, PE, and ED course. Joni Silva MD HPI: 24yo female ROS: All negative except as documented in HPI. Physical Exam: General: Alert and oriented. No acute distress when remaining still. Eyes: Conjunctivae and lids clear. ENT: No nasal congestion. Neck: Supple. Heart: RRR. Lungs: No respiratory distress. Good air movement. No rhonchi, wheezing, rales. Abdomen: Soft and nontender. Normal bowel sounds. No distension. No rebound or guarding. Back: No CVA tenderness. Skin: Warm and dry. Neuro: Alert and oriented X 3. I reviewed all diagnostic test results. My interpretation of the EKG is My interpretation of the chest x-ray is My review of the US report is Blood tests and urine tests At this point, diagnoses include Treatment here included Significant improvement Not yet done: I discussed the case with our hospitalist. About the presentation and exam and diagnostics and treatments here. And need of further care in the hospital. Will accept the patient. Not yet done: Based on my best medical judgment, made decision no further evaluation or treatment indicated at this time. Patient understands and agrees to the discharge instructions customized and printed, see below. Joni Silva MD Patient data External records reviewed:: [facility] previous records (Per chart review, patient was seen here on 12/30/24 for .) Clinical information provided by:: patient Social determinants that could affect healthcare access:: none Patient has the following chronic illnesses:: none How is presenting disease/condition affected by chronic disease/condition?: no chronic disease Evaluation data The following diagnostics were reviewed and interpreted by me:: lab results and radiology exam(s) Lab and/or radiology exams considered but not ordered:: none Medications / Prescriptions Medications or Prescriptions considered but not ordered:: none Discharge Plan Prescriptions/Referrals Prescriptions/Med Rec: No Action lidocaine 5 % ointment 1 applic topical QDAY PRN (Reason: pain) Qty: 30 0RF Patient/Caregiver Discharge Instructions Print Language: Ukrainian
--- NOTE | 2025-01-09 00:10 | PC.NURSE ---
Pt did not answer when name was called for vitals.
--- NOTE | 2025-01-09 00:30 | PD.EDADDENDU ---
Emergency Room Addendum Addendum Narrative: When I looked for the patient to start my evaluation, I was told the patient eloped. Joni Silva MD
--- NOTE | 2025-01-09 01:47 | PC.NURSE ---
Pt did not answer when name was called from the lobby and was not found outside.
--- NOTE | 2025-01-09 02:23 | PC.NURSE ---
Pt did not answer when name was called from lobby for the 3rd time.
== END 2025-01-09 02:23 | disposition left against medical advice (07) ==
LOC: SERX 01-09 00:32
PROVIDERS: Emergency Provider Emergency Medicine
DX: Z53.21 Procedure and treatment not carried out due to patient leaving prior to being seen by health care provider (principal)
CPT/HCPCS: 80053; 81001; 82248; 83735; 84702; 85025; 86901; 99283

== ENCOUNTER 2025-01-20 10:41 | Day surgery (SDC) | payer MEDICAID, SELFPAY ==
[2025-01-20] VITALS (27 sets, daily range): BP systolic 96–142; BP diastolic 70–98; PULSE 79–97; RESP 14–22; TEMP 36.3–37.1; O2SAT 96–100; BMI 44.6
--- NOTE | 2025-01-20 11:07 | XR_ITS ---
Examination: OB Transvaginal ultrasound of the pelvis, complete Technique: Transvaginal sonographic images pelvis performed using lee scale imaging Exam date and time: January 20, 2025, 1143 hours INDICATIONS: Vaginal bleeding and pelvic pain beginning one month ago, clinical diagnosis incomplete , no heart tones on pelvic sonogram December 30, 2024. FINDINGS: Uterus 10.3 cm endometrial stripe 3.4 cm, positive for retained process of conception more prominent in the lower uterine segment and cervix No intrauterine gestation no pole and no cardiac activity Right ovary 1.8 cm arterial flow Left ovary obscured by bowel gas IMPRESSION:: Incomplete spontaneous with extensive retained products of conception
--- NOTE | 2025-01-20 11:09 | PD.EDFMALE ---
ED Female Urogenital RME/HPI General Chief complaint: Urogenital-Female Stated complaint: R/O INCOMPLETE , MISCARRIAGE 01/07 Time Seen by Provider: 01/20/25 11:07 Source: patient Arrival date/time: 01/20/25 10:41 24-year-old female with no known medical history presents to the emergency room with a chief complaint of vaginal bleeding and pelvic pain. Patient had a miscarriage on 01/07/2025 and is still having bleeding. Patient was sent over by her primary care provider to rule out an incomplete . Mode of arrival: ambulatory Limitations: no limitations Related Data Previous Rx's ?Medication ?Instructions ?Recorded lidocaine 5 % topical ointment 1 applic topical QDAY PRN pain #30 02/24/23 grams Allergies Allergy/AdvReac Type Severity Reaction Status Date / Time Penicillins Allergy Severe FEVER, RASH Verified 01/20/25 10:47 Review of Systems Review of Systems Systems Reviewed: All systems reviewed, normal except as documented Constitutional Constitutional: Reports system reviewed and no additional complaints, except as documented, Denies fatigue, Denies fever(s), Denies headache(s) and Denies weakness Eyes Eyes: Reports system reviewed and no additional complaints, except as documented, Denies blurry vision and Denies change in vision ENT Ears, Nose, Mouth, and Throat: Reports system reviewed and no additional complaints, except as documented, Denies otalgia, Denies headache(s), Denies nasal congestion, Denies throat swelling and Denies vertigo Cardiovascular Cardiovascular: Reports system reviewed and no additional complaints, except as documented, Denies chest pain, Denies dyspnea and Denies dyspnea on exertion Respiratory Respiratory: Reports system reviewed and no additional complaints, except as documented, Denies chest congestion, Denies cough, Denies dyspnea, Denies dyspnea on exertion and Denies wheezing Gastrointestinal Gastrointestinal: Reports system reviewed and no additional complaints, except as documented, Denies abdominal pain, Denies cramping, Denies nausea and Denies vomiting Genitourinary Genitourinary: Reports system reviewed and no additional complaints, except as documented, Reports abnormal vaginal bleeding and Reports pelvic pain Musculoskeletal Musculoskeletal: Reports system reviewed and no additional complaints, except as documented and Denies back pain Integumentary/Breasts Skin/Breast: Reports system reviewed and no additional complaints, except as documented and Denies wounds Neurologic Neurologic: Reports system reviewed and no additional complaints, except as documented, Denies confusion, Denies headache(s), Denies lack of coordination, Denies vertigo and Denies weakness Psychiatric Psychiatric: Reports system reviewed and no additional complaints, except as documented, Denies anxiety, Denies confusion, Denies depression, Denies paranoia, Denies suicidal ideation and Denies tactile hallucinations Endocrine Endocrine: Reports system reviewed and no additional complaints, except as documented and Denies fatigue Hematologic/Lymphatic Hematologic/Lymphatic: Reports system reviewed and no additional complaints, except as documented and Denies lymphadenopathy Allergic/Immunologic Allergic/Immunologic: Reports system reviewed and no additional complaints, except as documented, Denies throat swelling, Denies urticaria and Denies wheezing Past Medical History Social History SMOKING STATUS: Never smoker ED Exam General Limitations: Present no limitations General appearance: Present alert and in no apparent distress Head Head exam: Present atraumatic Eye Eye exam: Present normal appearance, PERRL and EOMI ENT ENT exam: Present normal exam, normal oropharynx and mucous membranes moist Neck Neck exam: Present normal inspection, full ROM and trachea midline Chest Chest inspection: Present normal inspection and symmetric chest wall rise Respiratory Respiratory exam: Present normal lung sounds bilaterally Cardiovascular Cardiovascular exam: Present regular rate, normal rhythm and normal heart sounds Abdominal Exam Abdominal exam: Present soft, tenderness and normal bowel sounds; Absent distention or guarding Abdominal tenderness: Present suprapubic and mild Extremities Exam Extremities exam: Present normal inspection and full ROM Back Exam Back exam: Present normal inspection and full ROM Neurological Exam Neurological exam: Present alert, oriented X3 and CN II-XII intact Psychiatric Psychiatric exam: Present normal affect and normal mood Skin Skin exam: Present warm, dry, intact and normal color Course Quality Measures none Orders Category Date Time Status Place in Surgical Day Care Routine Admission 01/20/25 13:04 Active condition [Patient Condition] Routine Admission 01/20/25 Ordered Apply MARTIN Dennis NOW Care 01/20/25 13:03 Active COVID-19 Screening Questionnaire NOW Care 01/20/25 12:55 Active Clip Operative Site as Needed X1 Care 01/20/25 13:03 Active Consent [Obtain Written Consent For:] .NOW Care 01/20/25 13:07 Active Decision to Admit X1 Care 01/20/25 12:55 Active NPO NOW Care 01/20/25 13:03 Active SCD [Sequential Compression Device] NOW Care 01/20/25 13:03 Active Consult to Gynecology Stat Cons 01/20/25 12:51 Ordered Diet NPO (NOW) Diet 01/20/25 13:03 Active US OB transvaginal Stat Exams 01/20/25 11:07 Completed ABO/RH Type Stat Lab 01/20/25 11:25 Completed Beta HCG,Quantitative Stat Lab 01/20/25 11:25 Completed CBC Stat Lab 01/20/25 11:25 Completed CMP [Comprehensive Metabolic Panel] Stat Lab 01/20/25 11:25 Completed UA [Urinalysis] Stat Lab 01/20/25 11:19 Completed Ringers Lactated 1000 ml [Lactated Ringers] 1,000 ml Med 01/20/25 13:15 Active IV 30 mls/hr Code Status Routine Oth 01/20/25 13:04 Ordered Vital Signs Vital signs: Vital Signs Temperature 98.6 F 01/20/25 10:53 Pulse Rate 87 01/20/25 10:53 Respiratory Rate 18 01/20/25 10:53 Blood Pressure 113/76 01/20/25 10:53 Pulse Oximetry (%) 98 01/20/25 10:53 Oxygen Delivery Method Room Air 01/20/25 10:53 Urogenital - Female MDM Narrative MDM Narrative:: 24-year-old female with no known medical history presents to the emergency room with a chief complaint of vaginal bleeding and pelvic pain. Patient had a miscarriage on 01/07/2025 and is still having bleeding. Patient was sent over by her primary care provider to rule out an incomplete . Patient is hemodynamically stable and in no apparent distress Physical examination shows tenderness and pain to the patient's pelvic area. Patient states she is still having some vaginal bleeding but it is significantly decreased since her miscarriage. An ultrasound OB was completed and shows an incomplete spontaneous with extensive retained products of conception. Our [employer] on-call dr. Springer was consulted and he came in to see the patient. He is going to take the patient into the OR for a D&C Patient data External records reviewed:: [facility] previous records Clinical information provided by:: patient Social determinants that could affect healthcare access:: none Patient has the following chronic illnesses:: No chronic illness How is presenting disease/condition affected by chronic disease/condition?: no chronic disease Evaluation data The following diagnostics were reviewed and interpreted by me:: lab results and radiology exam(s) Lab and/or radiology exams considered but not ordered:: Labs and radiology exams considered and ordered Interpretation Summary: OB transvaginal ultrasound-FINDINGS: Uterus 10.3 cm endometrial stripe 3.4 cm, positive for retained process of conception more prominent in the lower uterine segment and cervix No intrauterine gestation no pole and no cardiac activity Right ovary 1.8 cm arterial flow Left ovary obscured by bowel gas IMPRESSION:: Incomplete spontaneous with extensive retained products of conception Medications / Prescriptions Medications or Prescriptions considered but not ordered:: Medication given Medication administrations:: Medication Administration History Lactated Ringer's (Lactated Ringers) 1,000 mls @ 30 mls/hr IV .Q24H [place] Stop: 02/19/25 13:14 Medication given Consultations Consultation(s) initiated? 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 Springer the [employer] on-call Admission Request Was there a request for admission?: Yes Admission Attestation Admission request attestation: Discussed case with Dr. Springer from Hospitalist service regarding admission. Discussed patients ED course, exam findings, labs, and radiology results. The Hospitalist [agrees,declines] to accept the patient for admission. Disposition Plan Disposition Plan: Admit Discharge Plan Plan Patient Disposition: Admit Acute Care w/in Hospital Discharge Disposition comment: Stable Prescriptions/Referrals Prescriptions/Med Rec: No Action lidocaine 5 % ointment 1 applic topical QDAY PRN (Reason: pain) Qty: 30 0RF Referrals: Oksana Giraldo NP [Primary Care Provider] - In 1 week Problem List Clinical Impression: Retained products of conception after miscarriage Patient/Caregiver Discharge Instructions Print Language: Romansh Stand Alone Forms: Jenny Award Info., Patient Portal Info Letter
--- NOTE | 2025-01-20 11:20 | PD.EDFMALE ---
ED Female Urogenital RME/HPI General Chief complaint: Urogenital-Female Stated complaint: R/O INCOMPLETE , MISCARRIAGE 01/07 Time Seen by Provider: 01/20/25 11:07 Source: patient Arrival date/time: 01/20/25 10:41 Mode of arrival: ambulatory Limitations: no limitations RME / HPI RME / HPI Narrative: 24-year-old female patient, morbidly obese, came in for evaluation after patient was seen by PCP to rule out incomplete . Patient is 2 para 0, 1, about 8 weeks , came in because of vaginal bleeding. Patient's been having vaginal bleeding for the last 1 month, and few weeks ago patient passed tissue like material. Went to PCP, and was sent to us to rule out incomplete . Patient still having mild vaginal discharge. Patient denies any fever but complain of mild pelvic discomfort. Denies any other complaints no medications taken prior to arrival. Related Data Previous Rx's ?Medication ?Instructions ?Recorded lidocaine 5 % topical ointment 1 applic topical QDAY PRN pain #30 02/24/23 grams Allergies Allergy/AdvReac Type Severity Reaction Status Date / Time Penicillins Allergy Severe FEVER, RASH Verified 01/20/25 10:47 Review of Systems Review of Systems Narrative Review of Systems: Review of system reviewed and within normal limits except mentioned in HPI ED Exam Narrative Physical exam: VITAL SIGNS: Reviewed. GENERAL APPEARANCE: Alert and interactive, follows commands, no acute distress, HEAD AND FACE: Non-traumatic. ENT: PERRL, pink conjunctivitis, eyelid no trauma, Mucous membrane moist. NECK: Supple, nontender, no nuchal rigidity. CHEST: No tenderness, no crepitus, no paradoxical movement, no retractions. LUNGS: Clear, well ventilated, symmetric, no rales, no wheezing, no ronchi, no stridor, good breath sounds bilaterally. HEART: Regular rate, regular rhythm, no murmur, no gallops. ABDOMEN: Soft, positive bowel sounds, nondistended, no guarding, nontender, no rebound, no masses, RECTAL: Deferred. GENITAL: Deferred. NEUROLOGICAL: Gross motor function intact sensory function intact, Appropriate for age. MUSCULOSKELETAL: low back nontender, full range of motion. EXTREMITIES: Nontender, full range of motion. SKIN: Color pink, dry, no rash, no lacerations, no abrasions, no contusions. LYMPHATICS: Deferred. General Limitations: Present no limitations General appearance: Present alert and in no apparent distress Course Orders Category Date Time Status US OB transvaginal Stat Exams 01/20/25 11:07 Ordered ABO/RH Type Stat Lab 01/20/25 11:07 Ordered Beta HCG,Quantitative Stat Lab 01/20/25 11:07 Ordered CBC Stat Lab 01/20/25 11:07 Ordered CMP [Comprehensive Metabolic Panel] Stat Lab 01/20/25 11:07 Ordered UA [Urinalysis] Stat Lab 01/20/25 11:07 Ordered Vital Signs Vital signs: Vital Signs Temperature 98.6 F 01/20/25 10:53 Pulse Rate 87 01/20/25 10:53 Respiratory Rate 18 01/20/25 10:53 Blood Pressure 113/76 01/20/25 10:53 Pulse Oximetry (%) 98 01/20/25 10:53 Oxygen Delivery Method Room Air 01/20/25 10:53 Urogenital - Female MDM Narrative MDM Narrative:: 24-year-old female patient, morbidly obese, came in for evaluation after patient was seen by PCP to rule out incomplete . Patient is 2 para 0, 1, about 8 weeks , came in because of vaginal bleeding. Patient's been having vaginal bleeding for the last 1 month, and few weeks ago patient passed tissue like material. Went to PCP, and was sent to us to rule out incomplete . Patient still having mild vaginal discharge. Patient denies any fever but complain of mild pelvic discomfort. Denies any other complaints no medications taken prior to arrival. Discharge Plan Prescriptions/Referrals Prescriptions/Med Rec: No Action lidocaine 5 % ointment 1 applic topical QDAY PRN (Reason: pain) Qty: 30 0RF Patient/Caregiver Discharge Instructions Print Language: [place]
[2025-01-20 11:31] LABS: Collection Type, Urine Clean Catch
[2025-01-20 11:38] LABS: Basophils # (Auto) 0.0 Thou/mm3 (0.0-0.2); Basophils % (Auto) 0 % (0-2.5); Eosinophils # (Auto) 0.1 Thou/mm3 (0.0-0.5); Eosinophils % (Auto) 1 % (0-10); Hematocrit 35.2 % (36.0-46.0); Hemoglobin 12.0 g/dL (12.0-16.0); Immature Granulocytes Auto 0.02 Thou/mm3 (0.00-0.00); Lymphocytes # (Auto) 2.6 Thou/mm3 (1.0-4.8); Lymphocytes % (Auto) 26 % (10-50); Mean Corpuscular HGB Conc 34.1 g/dl (31.0-37.0); Mean Corpuscular Hemoglobin 28.4 pg (25.0-35.0); Mean Corpuscular Volume 83 fL (80-100); Monocytes # (Auto) 0.6 Thou/mm3 (0.0-0.8); Monocytes % (Auto) 5 % (0-12); Neutrophils # (Auto) 6.9 Thou/mm3 (1.8-7.7); Neutrophils % (Auto) 68 % (37-80); Nucleated Red Blood Cell # 0.00 Thou/mm3 (0.00-0.00); Nucleated Red Blood Cell % 0 /100 WBC (0); Platelet Count 258 Thou/mm3 (140-440); RDW Standard Deviation 39.7 fL (36.4-46.3); Red Blood Count 4.22 Miln/mm3 (4.00-5.20); White Blood Count 10.2 Thou/mm3 (3.6-11.0)
[2025-01-20 11:53] LABS: Alanine Aminotransferase 24 U/L (10-49); Albumin, Serum 4.7 gm/dL (3.5-5.0); Albumin/Globulin Ratio 2.0 (1.2-2.2); Alkaline Phosphatase 86 U/L (46-116); Anion Gap 11 (7-16); Aspartate Amino Transferase 17 U/L (0-34); BUN/Creatinine Ratio 16 Ratio (12-20); Beta HCG,Quantitative 34 mIU/mL (<5.0); Bilirubin,Total 0.4 mg/dL (0.3-1.2); Blood Urea Nitrogen 8 mg/dL (9-23); Calcium 9.7 mg/dL (8.3-10.6); Calcium (Corrected) 9.7 mg/dL (8.5-10.1); Carbon Dioxide 22.7 mMol/L (20.0-31.0); Chloride 104 mMol/L (98-107); Creatinine (Component) 0.5 mg/dL (0.6-1.3); Estimated Creatinine Clearance 219.1 mL/min (>60); Globulin 2.3 gm/dL (2.3-3.5); Glucose 249 mg/dL (74-106); Osmolality,Calculated 281 (275-295); Potassium 4.0 mMol/L (3.4-5.1); Sodium 138 mMol/L (136-145); Total Protein 7.0 gm/dL (5.7-8.2); eGFR > 60 See Note
[2025-01-20 12:05] LABS: Bacteria,Urine 1+; Bilirubin,Urine Negative (Negative); Blood,Urine 3+ (Negative); Clarity,Urine Turbid (Clear/Hazy); Glucose, Urine 4+ (Negative); Ketones,Urine Negative (Negative); Leukocyte Esterase,Urine Positive (Negative); Nitrite,Urine Negative (Negative); PH,Urine 5.5 (5.0-7.0); Protein,Urine Trace (Neg - Trace); RBC,Urine 604 /hpf (0-3); Specific Gravity,Urine 1.047 (1.001-1.035); Squamous Epithelial Cell,Urine 20 /hpf (0-5); Urobilinogen,Urine Negative mg/dL (0.0-1.0); WBC,Urine 205 /hpf (0-5)
[2025-01-20 12:12] LABS: Color,Urine Lt Orange (Lt Yel-Yel)
--- NOTE | 2025-01-20 13:02 | PD.GYNHP ---
Documentation for date of: 01/20/25 PRODUCTS MECHANICAL DESIGN ENGINEER - HPI History of Present Illness History of present illness: Ms. MENDOZA is a 24 year old female with multiple ER visits this month for miscarriage at 6 weeks. HCG is declining and TVS shows retained products of conception. Blood type B+ . Started having heavy vaginal bleeding and severe pelvic pain during my assessement. Review of Systems Review of Systems Narrative Review of Systems: No CP, palpitations, shortness of breath or fever or cough or lower ext pain. Allergic/Immunologic Comments: Penicillin Past Medical History Past Medical History REPRODUCTIVE: Positive Genital Herpes ENDOCRINE: Positive Diabetes Mellitus Type 2 Surgical History OTHER SURGICAL HX: No surgery. Social History SMOKING STATUS: Never smoker SUBSTANCE USE: does not use ALCOHOL: Never Meds Home Medications and Allergies Allergies Allergy/AdvReac Type Severity Reaction Status Date / Time Penicillins Allergy Severe FEVER, RASH Verified 01/20/25 10:47 Exam - PRODUCTS MECHANICAL DESIGN ENGINEER Vital Signs Temp Pulse Resp BP Pulse Ox O2 Del Method 98.6 F 87 18 113/76 98 Room Air 01/20/25 10:53 01/20/25 10:53 01/20/25 10:53 01/20/25 10:53 01/20/25 10:53 01/20/25 10:53 Routine HEENT Exam Comments: wnl Routine Respiratory Exam Comments: CTA B/L Routine Cardiovascular Exam Comments: RRR Routine Abdominal Exam Comments: Nontender , nondistended. Routine Extremities Exam Comments: Nontender or edema Routine Skin Exam Comments: No rashes or lesions Routine Neurological Exam Comments: No deficit PRODUCTS MECHANICAL DESIGN ENGINEER - Results Labs 01/20/25 11:25 01/20/25 11:25 Labs: Short CBC 01/20/25 Range/Units 11:25 WBC 10.2 (3.6-11.0) Thou/mm3 Hgb 12.0 (12.0-16.0) g/dL Hct 35.2 L (36.0-46.0) % Plt Count 258 (140-440) Thou/mm3 BMP 01/20/25 11:25 Sodium 138 Potassium 4.0 Chloride 104 Carbon Dioxide 22.7 BUN 8 L Creatinine 0.5 L Glucose 249 H Calcium 9.7 Liver Function 01/20/25 Range/Units 11:25 Total Bilirubin 0.4 (0.3-1.2) mg/dL AST 17 (0-34) U/L ALT 24 (10-49) U/L Alkaline Phosphatase 86 (46-116) U/L Albumin 4.7 (3.5-5.0) gm/dL Urine 01/20/25 Range/Units 11:19 Urine Color Lt [place] A (Lt Yel-Yel) Urine Clarity Turbid A (Clear/Hazy) Urine pH 5.5 (5.0-7.0) Ur Specific [place] 1.047 H (1.001-1.035) Urine Protein Trace (Neg - Trace) Urine Glucose (UA) 4+ A (Negative) Impressions Impression: Incomplete at 6-7 weeks gestation. Emergent Suction Dilation and Curettage Aware of the risks, complications, alternatives and benefits of the proposed procedure and she agrees. Patient ate recently but do to the heavy bleeding the procedure is emergent. Quality Measures Quality Measures none
--- NOTE | 2025-01-20 14:06 | PC.NURSE ---
Surgery called for report. Informed Surgical team patient last ate 1315 a burrito and last drank approx. 240ml gatoraide 1330. Surgical Nurse stated they needed to speak with Anesthesiologist and call back with surgery time.
--- NOTE | 2025-01-20 15:09 | PC.NURSE ---
Patient went to surgery @1747.
--- NOTE | 2025-01-20 15:48 | PD.GYNPROC ---
Operative Note - CONTINUOUS IMPROVEMENT COACH Procedure Date of procedure: 01/20/25 Procedure Performed: Suction Dilation and Curttage Indication: Retained products of conception Pre-Op diagnosis: Incomplete at 6 weeks. Post-Op diagnosis: Incomplete at 6 weeks Anesthesia type: Spinal Procedure description: After proper informed consent was obtained.? The patient was made aware of the risks, complications, alternatives and benefits of the proposed procedure.? She was taken the operating room where she underwent induction of spinal anesthesia. She was placed in the dorsal lithotomy position.? A red rubber catheter was placed in the bladder to drain the bladder. The patient was prepped and draped in usual sterile fashion.? A timeout was performed.? A bivalve speculum was placed in the vagina.? A single-tooth tenaculum was used to grasp the anterior lip of the cervix.? The cervix was dilated 1.0 cm.? The the uterus was 8 weeks size.? The cervical dilators were used to dilate the cervix to accommodate the 12 mm suction curette.? The uterine cavity was curetted in all 4 quadrants and products of conception were obtained.? Patient subsequently received Pitocin.? A sharp curette was then utilized to curette the uterine cavity in all 4 quadrants.? A suction curette was then utilized to curette the uterine cavity in all 4 quadrants and no additional products of conception were obtained.? Hemostasis was obtained.? All instruments removed from the vagina.? She was reversed from general anesthesia in the supine position and transferred to the recovery room in stable condition.? Discharge instructions were given preoperatively.? I discussed with her family the nature of her condition and the intraoperative findings the expectation for recovery, all questions answered. Specimen: other (Products of conception) Estimated blood loss (ml): 25 Findings: 8 week size uterus Cervix dilated 1 cm Moderate amount of Products of conception at os. Complications: none Surgical staff Miguel A Peterson CRNA Operation Date: 01/20/25 15:15 <No data on this case meets the specified criteria> Diagnosis Discharge Diagnosis (1) Retained products of conception after miscarriage: Status: Acute Problem List Completed Was Problem List Reviewed/Reconciled?: Yes
--- NOTE | 2025-01-20 16:23 | SUR.PHASEI ---
1623: Pt. AAOx4, vitals stable, breathing unlabored, no complaint of pain or nausea, peripad in place, no active bleed noted, report received from Miguel A KAUR and Mi NOLEN.
--- NOTE | 2025-01-20 16:33 | SUR.PHASEI ---
1633: Pt. AAOx4, vitals stable, breathing unlabored, pt. tolerated sips of juice well, report given to Mana NOLEN to resume care.
--- NOTE | 2025-01-20 16:54 | SUR.PHASEI ---
1637 patient is awake, alert, breathing unlabored, s/p D& C by , spinal anesthesia given, report received from Shanon NOLEN
--- NOTE | 2025-01-20 17:24 | SUR.PHASEI ---
Addendum entered by Mana Herring RN 01/20/25 17:26: also called patient's mother to update on patient condition and estimated length of stay Original Note: called patient's pharmacy to verify new prescriptions were received, prescription will be available in about 2 hours, pharmacy closes at 9pm
--- NOTE | 2025-01-20 21:42 | SUR.PHASEII ---
2132 patient ambulated to bathroom and voided
--- NOTE | 2025-01-20 21:47 | SUR.PHASEII ---
2147 patient is awake, alert, breathing unlabored, peripad dry with no no active vaginal bleeding, patient able to tolerate jello and water with no nausa or vomiting, able to ambulate to bathroom and void, discharge instructions given to patient and mother, patient discharged home in wheelchair with all belongings.
== END 2025-01-20 21:47 | disposition home or self-care (01) ==
LOC: SERX 13:38 → S2EX 14:27
PROVIDERS: Nurse Practitioner Family; Emergency Provider Family Medicine; PCP Nurse Practitioner Family; Referring Provider Specialist; Visit Provider Specialist
PROC: (CPT 58120; principal; 2025-01-20 15:00)
DX: O03.4 Incomplete spontaneous abortion without complication (principal)
CPT/HCPCS: 59812; 36415; 76817; 80053; 81001; 84702; 85025; 86900; 86901; 99284; A4217; A4649; J0736; J1580; J2371; J2405; J2590; J3010; A9270